=== PATIENT | male | born 1955 | race Caucasian/White ===

== ENCOUNTER 2018-02-18 06:35 | Day surgery (SDC) | payer BC, OTHER ==
[~2018-02-18] VITALS: Ht 180.3 cm; Wt 120.2 kg
[~2018-02-18 06:35] MED LIST: COREG3.125 M1 PO; COZAAR100 MG PO; FISH OIL 1,2001 EAC3 PO; GLUCOPHAGE850 MG PO; LIPITOR40 MG PO; LO-DOSE ASPIRIN81 M2 PO; NORVASC10 MG PO; ONCE DAILY1 EACH PO; TRILIPIX45 MG PO; ZYLOPRIM300 MG PO
[2018-02-18 06:57] VITALS: BP 151/83
[2018-02-18] MEDS ORDERED: ENDOCET 5-3251 EACH PO (10:54)
[2018-02-18 11:40] VITALS: BP 135/74
[2018-02-18 12:50] VITALS: BP 146/71
[2018-02-18 14:19] VITALS: BP 150/80
== END 2018-02-18 14:10 | disposition home or self-care (01) ==
LOC: SDC 06:35
PROVIDERS: Surgery
PROC: 0WQF0ZZ Repair Abdominal Wall, Open Approach (ICD-10-PCS; principal; 2018-02-18)
DX: K43.6 Other and unspecified ventral hernia with obstruction, without gangrene (principal); I10 Essential (primary) hypertension; E11.9 Type 2 diabetes mellitus without complications; I49.3 Ventricular premature depolarization; I44.7 Left bundle-branch block, unspecified; N40.0 Benign prostatic hyperplasia without lower urinary tract symptoms; E66.9 Obesity, unspecified; Z68.36 Body mass index [BMI] 36.0-36.9, adult; Z79.82 Long term (current) use of aspirin; Z79.84 Long term (current) use of oral hypoglycemic drugs
CPT/HCPCS: 82948; J0131; J0690; J1170; J2405; J2710; J3010; J7643; S0020